=== PATIENT | male | born 1980 | race Caucasian/White ===

== ENCOUNTER 2019-01-17 22:48 | Emergency (ER) | payer OTHER ==
[~2019-01-17] VITALS: Ht 177.8 cm; Wt 93.0 kg
[2019-01-18 00:41] LABS: BASO % 0 % (0-3); EOS # 0.2 x10^3/uL (0.0-0.7); EOS % 1 % (0-3); HEMATOCRIT 44.9 % (39.0-53.0); HEMOGLOBIN 14.7 g/dL (13.0-17.5); LYMPH # 1.3 x10^3/uL (1.0-4.8); LYMPH % 11 % (24-48); MEAN CORPUSCULAR HEMOGLOBIN 29 pg (25-35); MEAN CORPUSCULAR HGB CONC 33 g/dL (31-37); MEAN CORPUSCULAR VOLUME 88 fL (79-100); MONO # 0.9 x10^3/uL (0.0-1.1); MONO % 8 % (0-9); NEUT # 9.7 x10^3uL (1.8-7.7); NEUT % 80 % (31-73); PLATELET COUNT 190 x10^3/uL (140-400); RED BLOOD COUNT 5.12 x10^6/uL (4.30-5.70); WHITE BLOOD COUNT 12.1 x10^3/uL (4.0-11.0)
[2019-01-18 00:52] LABS: CALCIUM 9.6 mg/dL (8.5-10.1); CREATININE 0.8 mg/dL (0.7-1.3); GFR 107.6; POTASSIUM 4.3 mmol/L (3.5-5.1)
--- NOTE | 2019-01-18 00:54 | PHYS DOC ---
Past Medical History Past Medical History: Other Additional Past Medical Histor: SBO X2 Past Surgical History: Other Additional Past Surgical Histo: SBO REPAIR, RIGHT KNEE "REBUILD", "INTESTINAL SX" CHILD Alcohol Use: Rarely Drug Use: None Adult General Chief Complaint Chief Complaint: ABDOMINAL PAIN HPI HPI Patient is a 39 year old male who presents for evaluation of abdominal pain. Patient reports developing sharp abdominal pain located in his periumbilical area around seven thirty tonight. Patient reports the urge to pass a bowel movement and gas but has not been successful. Patient states that his last bowel movement was at nine o'clock this morning and it was normal. Patient reports a history of a small bowel obstruction four years ago which required surgery. Patient states that he subsequently developed another partial small bowel obstruction two weeks later which was treated with a NG tube. Patient reports nausea but denies vomiting. Patient currently rates his pain to be 5/ 10. Patient was able to tolerate eating dinner this evening. Denies aggravating and alleviating symptoms. Patient has never had a colonoscopy. Review of Systems Review of Systems Constitutional: Denies fever or chills. Eyes: Denies change in visual acuity or eye pain. HENT: Denies nasal congestion or sore throat. Respiratory: Denies cough or shortness of breath. Cardiovascular: Denies chest pain or palpitations. GI: Denies vomiting or diarrhea. : Denies dysuria or hematuria Musculoskeletal: Denies back pain or joint pain. Integument: Denies rash or skin lesions. Neurologic: Denies focal weakness or sensory changes. Complete systems were reviewed and found to be within normal limits, except as documented in this note. Current Medications Current Medications Current Medications Medications (Trade) Dose Ordered Sig/Izaiah Start Time Stop Time Status Last Admin Dose Admin Famotidine (Pepcid Vial) 20 mg 1X ONCE 01/18/19 01:00 01/18/19 01:01 DC 01/18/19 01:02 20 MG Info (CONTRAST GIVEN -- Rx MONITORING) 1 each PRN DAILY PRN 01/18/19 02:15 01/20/19 02:14 Iohexol (Omnipaque 240 Mg/ml) 30 ml 1X ONCE 01/18/19 02:00 01/18/19 02:05 DC 01/18/19 01:57 30 ML Ketorolac Tromethamine (Toradol 15mg Vial) 15 mg 1X ONCE 01/18/19 01:00 01/18/19 01:01 DC 01/18/19 01:01 15 MG Ondansetron HCl (Zofran) 4 mg 1X ONCE 01/18/19 01:00 01/18/19 01:01 DC 01/18/19 01:02 4 MG Sodium Chloride 1,000 ml @ 1,000 mls/hr 1X ONCE 01/18/19 01:00 01/18/19 01:59 DC 01/18/19 01:01 1,000 MLS/HR Allergies Allergies Allergies Coded Allergies Type Severity Reaction Last Updated Verified codeine Allergy Intermediate 01/17/19 Yes Physical Exam Physical Exam Constitutional: Well developed, well nourished, no acute distress. HENT: Normocephalic, atraumatic, oropharynx moist. Eyes: PERRL, conjunctiva without erythema. Neck: Normal range of motion, no tenderness, supple. Cardiovascular:Heart rate regular rhythm, no murmur. Lungs & Thorax: Bilateral breath sounds clear to auscultation. No wheezing or rhonchi. Abdomen: Soft, mild tenderness of bilateral lower abdominal quadrants on palpations. Active bowel sounds. No guarding or rebound. Skin: Warm, dry, no rash. Back: No tenderness, no CVA tenderness. Extremities: No tenderness, ROM intact, no edema. Neurologic: Alert and oriented X 3, no focal deficits noted. Psychologic: Affect normal. Speech normal. Current Patient Data Vital Signs Vital Signs Date Time Temp Pulse Resp B/P (MAP) Pulse Ox O2 Delivery O2 Flow Rate FiO2 01/17/19 22:55 97.8 71 16 158/74 (102) 100 Room Air 97.8 Lab Values Laboratory Tests Test 01/18/19 00:02 White Blood Count 12.1 x10^3/uL (4.0-11.0) H Red Blood Count 5.12 x10^6/uL (4.30-5.70) Hemoglobin 14.7 g/dL (13.0-17.5) Hematocrit 44.9 % (39.0-53.0) Mean Corpuscular Volume 88 fL (79-100) Mean Corpuscular Hemoglobin 29 pg (25-35) Mean Corpuscular Hemoglobin Concent 33 g/dL (31-37) Red Cell Distribution Width 13.0 % (11.5-14.5) Platelet Count 190 x10^3/uL (140-400) Neutrophils (%) (Auto) 80 % (31-73) H Lymphocytes (%) (Auto) 11 % (24-48) L Monocytes (%) (Auto) 8 % (0-9) Eosinophils (%) (Auto) 1 % (0-3) Basophils (%) (Auto) 0 % (0-3) Neutrophils # (Auto) 9.7 x10^3uL (1.8-7.7) H Lymphocytes # (Auto) 1.3 x10^3/uL (1.0-4.8) Monocytes # (Auto) 0.9 x10^3/uL (0.0-1.1) Eosinophils # (Auto) 0.2 x10^3/uL (0.0-0.7) Basophils # (Auto) 0.0 x10^3/uL (0.0-0.2) Prothrombin Time 12.6 SEC (11.7-14.0) Prothrombin Time INR 1.0 (0.8-1.1) PTT 29 SEC (24-38) Sodium Level 143 mmol/L (136-145) Potassium Level 4.3 mmol/L (3.5-5.1) Chloride Level 100 mmol/L (98-107) Carbon Dioxide Level 34 mmol/L (21-32) H Anion Gap 9 (6-14) Blood Urea Nitrogen 15 mg/dL (8-26) Creatinine 0.8 mg/dL (0.7-1.3) Estimated GFR (Cockcroft-Gault) 107.6 BUN/Creatinine Ratio 19 (6-20) Glucose Level 98 mg/dL (70-99) Calcium Level 9.6 mg/dL (8.5-10.1) Magnesium Level 1.9 mg/dL (1.8-2.4) Total Bilirubin 0.6 mg/dL (0.2-1.0) Aspartate Amino Transferase (AST) 29 U/L (15-37) Alanine Aminotransferase (ALT) 33 U/L (16-63) Alkaline Phosphatase 107 U/L (46-116) Total Protein 7.9 g/dL (6.4-8.2) Albumin 4.3 g/dL (3.4-5.0) Albumin/Globulin Ratio 1.2 (1.0-1.7) Lipase 172 U/L (73-393) Laboratory Tests 01/18/19 00:02 Laboratory Tests 01/18/19 00:02 EKG EKG [] Radiology/Procedures Radiology/Procedures PROCEDURE: CT ABD PELV W/ORAL&IV CONTRAST CT SCAN OF THE ABDOMEN AND PELVIS WITH IV CONTRAST. History: Nausea and abdominal pain Comparison:None. Procedure: Contiguous axial images of the abdomen and pelvis were performed after the administration of 75 cc of Omni 240 IV contrast and oral contrast. CT Abdomen with contrast: Findings: Liver: Unremarkable Spleen: 1.3 cm hypoattenuating mass Pancreas: Unremarkable Adrenal Glands: Unremarkable Kidneys: Unremarkable There is no mass or lymphadenopathy. There is no free air. There is no free fluid. CT Pelvis with Contrast: Findings: The urinary bladder appears normal. There is a trace of free fluid. There is no lymphadenopathy. The appendix is not seen. Impression: 1. 1.3 cm hypoattenuating mass in the spleen. Splenic masses are nonspecific and often benign. 2. Trace of free fluid in the pelvis. PQRS Compliance Statement: One or more of the following individualized dose reduction techniques were utilized for this examination: 1. Automated exposure control 2. Adjustment of the mA and/or kV according to patient size 3. Use of iterative reconstruction technique Electronically signed by: Denny Beaulieu III, MD (01/18/2019 2:09 AM) [facility] Course & Med Decision Making Course & Med Decision Making Pertinent Labs and Imaging studies reviewed. (See chart for details) Patient is a 39 year old male who presents with abdominal pain. Patient treated with 1L Normal saline, Zofran, Pepcid, and Ketorolac in the ED. Dragon Disclaimer Dragon Disclaimer This electronic medical record was generated, in whole or in part, using a voice recognition dictation system. Departure Departure Impression: Primary Impression: Abdominal pain Additional Impression: Abnormal finding on radiology exam Disposition: HOME, SELF-CARE Condition: IMPROVED Referrals: NO PCP (PCP) SUSANNA HERNANDEZ MD Patient Instructions: Abdominal Pain (Nonspecific), Incidental Abdominal Radiological Finding Additional Instructions: Use over the counter Tylenol and/or Ibuprofen for pain or discomfort. Problem Qualifiers Primary Impression: Abdominal pain Abdominal location: unspecified location Qualified Codes: R10.9 - Unspecified abdominal pain GARDENIA AKHTAR DO Jan 18, 2019 00:54
[2019-01-18 00:58] LABS: ALBUMIN 4.3 g/dL (3.4-5.0); ALBUMIN/GLOBULIN RATIO 1.2 (1.0-1.7); MAGNESIUM 1.9 mg/dL (1.8-2.4); PROTHROMBIN TIME PATIENT 12.6 SEC (11.7-14.0); TOTAL BILIRUBIN 0.6 mg/dL (0.2-1.0); TOTAL PROTEIN 7.9 g/dL (6.4-8.2)
[2019-01-18] MEDS ORDERED: IV NORMAL SALINE 1000ML BAG 1,000 ML IV ONE (01:00)
[2019-01-18] MEDS ORDERED: KETOROLAC 15 MG/ML VIAL. IV ONE (01:00)
[2019-01-18] MEDS ORDERED: FAMOTIDINE 20 MG/2 ML VIAL IVP ONE (01:00)
[2019-01-18] MEDS ORDERED: ONDANSETRON PF 4 MG/2 ML VIAL. IV ONE (01:00)
[2019-01-18] MEDS ORDERED: IOHEXOL 240 MG/ML 50ML VIAL. PO ONE (02:00)
--- NOTE | 2019-01-18 02:11 | RAD ---
CT SCAN OF THE ABDOMEN AND PELVIS WITH IV CONTRAST. History: Nausea and abdominal pain Comparison:None. Procedure: Contiguous axial images of the abdomen and pelvis were performed after the administration of 75 cc of Omni 240 IV contrast and oral contrast. CT Abdomen with contrast: Findings: Liver: Unremarkable Spleen: 1.3 cm hypoattenuating mass Pancreas: Unremarkable Adrenal Glands: Unremarkable Kidneys: Unremarkable There is no mass or lymphadenopathy. There is no free air. There is no free fluid. CT Pelvis with Contrast: Findings: The urinary bladder appears normal. There is a trace of free fluid. There is no lymphadenopathy. The appendix is not seen. Impression: 1. 1.3 cm hypoattenuating mass in the spleen. Splenic masses are nonspecific and often benign. 2. Trace of free fluid in the pelvis. PQRS Compliance Statement: One or more of the following individualized dose reduction techniques were utilized for this examination: 1. Automated exposure control 2. Adjustment of the mA and/or kV according to patient size 3. Use of iterative reconstruction technique Electronically signed by: Denny Beaulieu III, MD (01/18/2019 2:09 AM) [facility]
[2019-01-18] MEDS ORDERED: CONTRAST GIVEN. MC PRN (02:15)
[2019-01-18 03:58] VITALS: BP 151/70
[2019-01-18] MEDS ORDERED: IOHEXOL 300 MG/ML 100ML VIAL. ONE (04:47)
== END 2019-01-18 03:50 | disposition home or self-care (01) ==
LOC: ER 22:48
DX: R10.31 Right lower quadrant pain (principal); R93.5 Abnormal findings on diagnostic imaging of other abdominal regions, including retroperitoneum; R10.32 Left lower quadrant pain; R10.33 Periumbilical pain; Z88.5 Allergy status to narcotic agent
CPT/HCPCS: 36415; 74177; 80053; 83690; 83735; 85025; 85610; 85730; 96374; 96375; 99284; J1885; J2405; J3490; J7030; Q9966